=== PATIENT | male | born 1950 | race Caucasian/White ===

== ENCOUNTER 2017-04-01 21:12 | Inpatient (IN) | payer OTHER, BC ==
[~2017-04-01] VITALS: Ht 167.6 cm; Wt 88.3 kg
[~2017-04-01 21:12] MED LIST: DECADRON4 MG/ML 1M IV; ZOFRAN4 MG/2 ML IV
[2017-04-02] VITALS (13 sets, daily range): BP systolic 0–161; BP diastolic 0–81
[2017-04-02] MEDS ORDERED: BENICAR20 MG PO (05:51)
[2017-04-02 15:20] LABS: EOSINOPHIL (%) 0 % (0-5); HEMATOCRIT 44.3 % (38.0-50.0); IMMATURE GRANULOCYTE (%) 2.1 % (0.0-0.7); IMMATURE GRANULOCYTE COUNT 0.3 K/uL; INSTRUMENT ABS NEUTROPHIL CT 14.3 K/uL; LYMPHOCYTE COUNT 0.3 K/uL (1.0-2.8); MCH 30.2 PG (29.0-34.0); MCV 91.7 FL (86-99); MEAN PLAT.VOLUME 10.5 uM^3 (9.0-12.4); MONOCYTE COUNT 0.6 K/uL (0-0.8); NEUTROPHIL (%) 91.7 % (45-76); NEUTROPHIL COUNT 14.3 K/uL (1.8-6.4); PLATELET COUNT 129 K/uL (156-360); RBC DIS.WIDTH-CV 13.3 % (11.8-14.6); RBC DIS.WIDTH-SD 45.2 % (39-53); RED BLOOD COUNT 4.83 M/uL (4.00-5.50); WHITE BLOOD COUNT 15.6 K/uL (4.1-10.2)
[2017-04-02 15:27] LABS: METH RESISTANT S AUREUS PCR NEGATIVE (NEGATIVE)
[2017-04-02 15:34] LABS: ANION GAP 8 MEQ/L (2-14); CHLORIDE 109 MEQ/L (99-109); MAGNESIUM 1.9 mg/dl (1.3-2.7); POTASSIUM 4.3 MEQ/L (3.7-5.4); SAMPLE HEMOLYSIS CHECK 0; SAMPLE ICTERIC CHECK 0; SAMPLE LIPEMIA CHECK 0; SODIUM 140 MEQ/L (136-147)
[2017-04-02 15:40] LABS: GFR ESTIMATE (CALCULATED) > 59 mL/min/; GLUCOSE 111 mg/dL (70-99); UREA NITROGEN (BUN) 25 mg/dL (9-23)
[2017-04-02 15:47] LABS: PROBE CHECK PASS; SPECIMEN PROCESSING CONTROL PASS
[2017-04-03] VITALS (15 sets, daily range): BP systolic 108–150; BP diastolic 54–78
[2017-04-03 04:52] LABS: EOSINOPHIL (%) 0 % (0-5); IMMATURE GRANULOCYTE (%) 1.4 % (0.0-0.7); IMMATURE GRANULOCYTE COUNT 0.2 K/uL; INSTRUMENT ABS NEUTROPHIL CT 11.4 K/uL; LYMPHOCYTE COUNT 0.2 K/uL (1.0-2.8); MCH 31.1 PG (29.0-34.0); MCHC 34.4 G/DL (30.0-36.0); MCV 90.5 FL (86-99); MONOCYTE (%) 10.7 % (3-12); MONOCYTE COUNT 1.4 K/uL (0-0.8); NEUTROPHIL (%) 86.1 % (45-76); NEUTROPHIL COUNT 11.4 K/uL (1.8-6.4); PLATELET COUNT 107 K/uL (156-360); RBC DIS.WIDTH-CV 13.1 % (11.8-14.6); RBC DIS.WIDTH-SD 43.8 % (39-53); RED BLOOD COUNT 4.31 M/uL (4.00-5.50); WHITE BLOOD COUNT 13.2 K/uL (4.1-10.2)
[2017-04-03 05:00] LABS: CHLORIDE 110 mEq/L (99-109); MAGNESIUM 2.1 mg/dL (1.3-2.7); POTASSIUM 4.5 mEq/L (3.7-5.4); SODIUM 140 mEq/L (136-147)
[2017-04-03 05:02] LABS: GLUCOSE 121 mg/dL (70-99)
[2017-04-03 05:03] LABS: ANION GAP 8 MEQ/L (2-14)
[2017-04-03 05:06] LABS: GFR ESTIMATE (CALCULATED) > 59 mL/min/; UREA NITROGEN (BUN) 26 mg/dL (9-23)
[2017-04-04 00:10] VITALS: BP 157/82
[2017-04-04 07:14] LABS: EOSINOPHIL (%) 0 % (0-5); HEMATOCRIT 41.8 % (38.0-50.0); IMMATURE GRANULOCYTE (%) 2.5 % (0.0-0.7); IMMATURE GRANULOCYTE COUNT 0.3 K/uL; INSTRUMENT ABS NEUTROPHIL CT 10.7 K/uL; LYMPHOCYTE COUNT 0.3 K/uL (1.0-2.8); MCH 31.6 PG (29.0-34.0); MCHC 34.7 G/DL (30.0-36.0); MCV 91.1 FL (86-99); MONOCYTE (%) 7.4 % (3-12); MONOCYTE COUNT 0.9 K/uL (0-0.8); NEUTROPHIL (%) 87.4 % (45-76); NEUTROPHIL COUNT 10.7 K/uL (1.8-6.4); PLATELET COUNT 102 K/uL (156-360); RBC DIS.WIDTH-CV 13.2 % (11.8-14.6); RED BLOOD COUNT 4.59 M/uL (4.00-5.50); WHITE BLOOD COUNT 12.2 K/uL (4.1-10.2)
[2017-04-04 07:45] LABS: ANION GAP 5 MEQ/L (2-14); CHLORIDE 107 MEQ/L (99-109); GFR ESTIMATE (CALCULATED) 59 mL/min/; GLUCOSE 130 mg/dL (70-99); SAMPLE HEMOLYSIS CHECK 0; SAMPLE ICTERIC CHECK 0; SAMPLE LIPEMIA CHECK 0; SODIUM 139 MEQ/L (136-147); UREA NITROGEN (BUN) 29 mg/dL (9-23)
[2017-04-04 07:46] VITALS: BP 140/78
[2017-04-04 07:46] LABS: MAGNESIUM 2.3 mg/dl (1.3-2.7)
[2017-04-04] MEDS ORDERED: DECADRON2 MG PO (11:35)
[2017-04-04] MEDS ORDERED: DECADRON1 MG PO (11:36)
[2017-04-04] MEDS ORDERED: HYDROCODON-ACE1 EAC7 PO (11:37)
[2017-04-04] MEDS ORDERED: PROTONIX20 MG PO (11:48)
[2017-04-04] MEDS ORDERED: DEXAMETHASONE4 MG PO (11:50)
== END 2017-04-04 13:30 | disposition home or self-care (01) | DRG 25 ==
LOC: ENRESERV 21:12 → 4WEST 04-02 05:09 → 2SOUTH 04-02 05:09 → ENRESERV 04-02 12:10 → 4WEST 04-02 13:16 → EDSTATUS 04-02 13:30 → 2SOUTH 04-02 13:30 → RAD 04-02 13:30 → 4WEST 04-02 17:17 → ENRESERV 04-03 09:17 → 3EAST 04-03 18:11
PROVIDERS: Internal Medicine Nephrology; Neurological Surgery
PROC: 00B00ZZ Excision of Brain, Open Approach (ICD-10-PCS; principal; 2017-04-02)
DX: C71.1 Malignant neoplasm of frontal lobe (principal); G93.6 Cerebral edema; I10 Essential (primary) hypertension; E83.42 Hypomagnesemia; D69.6 Thrombocytopenia, unspecified
CPT/HCPCS: 70553; 77021; 80048; 83735; 84100; 85025; 85027; 86850; 86900; 86901; 87641; 88307; 88341 TC; 88342 TC; C1713; J0330; J0690; J1100; J1170; J2250; J2405; J2710; J3010; J3475; J7120; J8540; S0020